=== PATIENT | male | born 1980 ===

== ENCOUNTER 2017-05-29 10:06 | Emergency (ER) | payer OTHER ==
[2017-05-29] MEDS ORDERED: SODIUM BICARB ADULT 8.4% 50 MEQ/50 ML DISP.SYRIN. ONE (10:10)
[2017-05-29] MEDS ORDERED: EPINEPHrine 1 MG/10 ML DISP.SYRIN ONE (10:10)
--- NOTE | 2017-05-29 10:36 | ED.ADGEN ---
Adult General Chief Complaint Chief Complaint CODE BLUE HPI HPI Patient is a 36 year old and [place] male who presents with cardiac arrest. According to EMS at 1020 he went unresponsive and CPR was started. He was in his cell with drug paraphernalia found. He received epi and had a return of pulse briefly and then went back into PEA. He arrived approximately 40 minutes after CPR was started with the cardiac "thumper" in place. He was intubated with a Combitube. Upon arrival he was pulseless with chest compressions being performed and he was being bagged. Accu-Chek showed a sugar of 201. I could not appreciate breath sounds bilaterally or over the stomach therefore he was intubated with a gluide scope with a 7.5 ET tube. It was confirmed with visual placement and no breath sounds over the abdomen with color change. He was given multiple rounds of epi and bicarbonate and remained in PEA rhythm. Review of Systems Review of Systems Unable to obtain secondary to patient's current condition Physical Exam Physical Exam Constitutional: Well developed, well nourished, in acute distress. HENT: Normocephalic, atraumatic, bilateral external ears normal, oropharynx moist, no oral exudates, nose normal. [] Eyes: Pupils 4 mm and nonreactive bilaterally, conjunctiva normal, no discharge. [] Neck: no stridor. [] Cardiovascular: CPR in progress Lungs & Thorax: Bilateral breath sounds with bagging Abdomen: No bowel sounds appreciated, soft, no tenderness, no masses, no pulsatile masses. [] Skin: Warm, dry, no erythema, no rash. [] Extremities: no cyanosis, no clubbing, no edema. [] Neurologic: Unresponsive Current Patient Data Lab Results Laboratory Tests Test 05/29/17 10:10 Glucose (Fingerstick) 201 mg/dL (70-99) H EKG EKG [] Radiology/Procedures Radiology/Procedures [] Course & Med Decision Making Course & Med Decision Making Pertinent Labs and Imaging studies reviewed. (See chart for details) Patient arrived with CPR in progress with a cardiac thumper. He was moved over on to our cot and then the cardiac thumper was removed and CPR manually was started with good pulses in his femoral artery with CPR. I do not appreciate any signs of trauma. ACLS protocol was followed. Please refer to the CODE BLUE sheet for list of medications that were given. In summary, multiple rounds of epinephrine and 2 rounds of bicarbonate were given. His Combitube was removed and he was intubated with a 7.5 ET tube and an O2 sat showed 100% while he is being bagged. ET tube was confirmed with bilateral breath sounds and no sounds over the stomach and color change in the CO2 detector. His Accu-Chek was 201 dL/ mg. During pulse checks he was in PEA and never had a pulse. At 59 minutes after he went into cardiac arrest he was pronounced . No lines are tubes were touched after pronouncing the patient as an autopsy will likely be performed. His body is being guarded by the care home guards. Final Impression Final Impression CODE BLUE/cardiac arrest Problems: Dragon Disclaimer Dragon Disclaimer This electronic medical record was generated, in whole or in part, using a voice recognition dictation system. JOLLY CARR MD May 29, 2017 10:36
== END 2017-05-29 12:23 | disposition expired ==
LOC: ER 10:06 → EEVIPCON 10:06 → ER 12:23
DX: I46.9 Cardiac arrest, cause unspecified (principal)
CPT/HCPCS: 82947; J0171; 31500; 92950; 96360; 99285-25